=== PATIENT | female | born 1970 | race Caucasian/White ===

== ENCOUNTER 2016-04-01 11:29 | Day surgery (SDC) | payer OTHER ==
[2016-03-31 13:14] VITALS: BMI 31.3
[~2016-04-01 11:29] MED LIST: ACETAMINOPHEN TAB 500 MG TAB PO ONE; DEXAMETHASONE SOD PHOSPHATE 4 MG/ML 1 ML VIAL IV ONE; FAMOTIDINE 20 MG/2 ML VIAL IV ONE; ONDANSETRON 4 MG/2 ML VIAL IVP ONE; Pre Op ABX Message 1 EACH MISC MISCELLANE ONE
[2016-04-01] MEDS ORDERED: LACTATED RINGERS 1,000 ML IV ONE (12:06)
[2016-04-01] MEDS ORDERED: LIDOCAINE 1% 20 ML VIAL (10MG/ML) FOR IV START INTRADERMA ONE (12:36)
[2016-04-01] MEDS ORDERED: SUCCINYLCHOLINE CHLORIDE 100 MG/5 ML SYR IV ONE (13:30)
[2016-04-01] MEDS ORDERED: LIDOCAINE 1% INJ 10MG/ML (20 ML MDV) ONE (13:30)
[2016-04-01] MEDS ORDERED: MIDAZOLAM 2 MG/2 ML VIAL ONE (13:30)
[2016-04-01] MEDS ORDERED: DEXAMETHASONE SOD PHOS (MDV) 100 MG/10 ML VIAL ONE (13:30)
[2016-04-01] MEDS ORDERED: PROPOFOL 10 MG/ML 20 ML VIAL IV ONE (13:30)
[2016-04-01] MEDS ORDERED: fentaNYL (PF) 50 MCG/ML 2 ML AMP ONE (13:30)
[2016-04-01] MEDS ORDERED: SODIUM CHLORIDE 0.9% 50 ML with ceFAZolin 2,000 MG IV ONE ×2 (13:59)
[2016-04-01] MEDS ORDERED: LIDOCAINE 1%-EPI 1:100,000 20 ML VIAL SQ ONE ×2 (14:16)
[2016-04-01] MEDS ORDERED: GELATIN SPONGE,ABSORB (LARGE) 1 EACH SPONGE TOPICAL ONE (14:16)
[2016-04-01] MEDS ORDERED: ONDANSETRON 4 MG/2 ML VIAL IVP PRN (15:41)
[2016-04-01] MEDS ORDERED: NALOXONE 0.4 MG/ML 1 ML VIAL IV PRN (15:41)
[2016-04-01] MEDS ORDERED: PROMETHAZINE 25 MG TAB PO PRN (15:41)
--- NOTE | 2016-04-01 15:41 | P.OP ---
Date of Procedure: 04/01/16 Preoperative Diagnosis: Left thyroid mass Postoperative Diagnosis: Same Procedure(s) Performed: Left thyroid lobectomy with the use of a nerve integrity monitor Anesthesia: SHYAMA Surgeon: Denzel Tena Estimated Blood Loss (ml): 10 Pathology: other (Left thyroid) Condition: stable Disposition: PACU Indications for Procedure: This patient was found have a left thyroid mass. It measured over 3.9 cm and because of its large size surgical removal was recommended as a nodule over 3 cm is difficult to follow based on surveillance. The patient understood all the risks involved including risks of bleeding infection vocal cord paralysis calcium abnormalities scar etc. consent was obtained and all questions were answered Operative Findings: Left thyroid nodule quite large Description of Procedure: SUMMARY: This patient was taken to the operative room and placed in a standard thyroidectomy position with the head elevated and the head in slight extension. The neck was sterilely prepped and draped in the usual fashion. We used a DuraPrep drape. The patient underwent preoperative antibiotic administration. Patient had a functioning IV line in and was monitored throughout the entire case by the department of anesthesia. An incision was was made after it was marked and the previous scar was removed with a 15 blade and delicate plastic scissors and a Brown-Adson forceps. Dissection was carried down through the platysmas muscle to the strap muscles and superior and inferiorly based flaps were developed. We elevated the skin and subcutaneous flaps from the hyoid to the manubrium. We identified the strap muscles in the midline. We divided the strap muscles and utilized self-retaining retractors. We identified the isthmus. An dissection was carried out on the LEFT thyroid lobe. We utilized a nerve integrity monitor during this entire case. Our dissection was carried out inferiorly and the recurrent laryngeal nerve was identified and monitored and watched through the entire case to preserve this structure. We confirmed its identity with use of a probe with the nerve integrity monitor. We also confirmed its integrity at the end of the case prior to closure. Our dissection continued superiorly where the middle thyroid vessels were again applied and ligated with a ligature. The superior vascular pedicle was also ligated with use of the LigaSure. The parathyroid glands were identified and reflected away from the thyroid gland. The parathyroid glands appeared healthy. They had good blood supply. We continued our dissection of the thyroid off of Ybarra's ligament. The nodule was also identified and was adherent to the recurrent laryngeal nerve but was dissected off the nerve carefully and completely. The left thyroid lobe was completely removed and no remnant thyroid tissue was identified. There was no signs of any lymphadenopathy noted. Gelfoam was placed into the surgical site after a copious amount of irrigation. The strap muscles were reapproximated with use of a 40 rapid Vicryl in a running locking fashion. We elected not to place a drain as there was minimal bleeding. We closed the platysmas layer with use of 4-0 Vicryl in a running locking fashion. The subcutaneous skin was closed with 4-0 Monocryl. The final skin closure was with a 6-0 Prolene. Steri-Strips were applied. A modest pressure dressing utilizing Medipore tape was also applied. The patient tolerated this procedure well and was taken to postanesthesia recovery in excellent condition. The recurrent laryngeal nerve was tested prior to closure and was functioning with use of an NIM monitor.
[2016-04-01] MEDS ORDERED: D5-0.45% NACL WITH KCL 20MEQ/L 1,000 ML IV SCH (16:00)
[2016-04-01] MEDS: HYDROmorphone 1 MG/ML 1 ML SYRINGE IVP ONE ×2 (16:00→16:05)
[2016-04-01] MEDS: ceFAZolin 1,000 MG in DEXTROSE/WATER 1 50ML.BAG IVPB SCH (18:27)
[2016-04-01] MEDS: HYDROcodone/APAP 5-325MG 1 EACH TAB PO PRN (23:01)
[2016-04-02] MEDS: ceFAZolin 1,000 MG in DEXTROSE/WATER 1 50ML.BAG IVPB SCH ×2 (00:53→08:31)
[2016-04-02] MEDS: HYDROcodone/APAP 5-325MG 1 EACH TAB PO PRN (08:32)
[2016-04-02 09:17] VITALS: BP 124/78; PULSE 83; RESP 12; TEMP 97.9
== END 2016-04-02 11:48 | disposition home or self-care (01) ==
LOC: OR 11:29 → 6PED 15:28 → OR 04-02 11:48
PROVIDERS: ATTEND Otolaryngology
DX: C73 Malignant neoplasm of thyroid gland (principal); K21.9 Gastro-esophageal reflux disease without esophagitis; Z79.899 Other long term (current) drug therapy
CPT/HCPCS: 60220; 81025; 82310 ×2; 88307; C1762; J2250; J1100 ×2; J2405; J2001; J3010; J1170; J0690 ×2; J0330; J2704

== ENCOUNTER 2023-04-05 09:42 | Day surgery (SDC) | payer BC ==
[~2023-04-05 09:42] MED LIST changes: -ACETAMINOPHEN TAB 500 MG TAB PO ONE; -DEXAMETHASONE SOD PHOSPHATE 4 MG/ML 1 ML VIAL IV ONE; -FAMOTIDINE 20 MG/2 ML VIAL IV ONE; +LIDOCAINE 1% (10MG/ML) FOR IV START INTRADERMA PRN; -ONDANSETRON 4 MG/2 ML VIAL IVP ONE; -Pre Op ABX Message 1 EACH MISC MISCELLANE ONE
[2023-04-05] MEDS: LACTATED RINGERS 1,000 ML IV SCH (10:27)
[2023-04-05 10:36] VITALS: TEMP 97.7
[2023-04-05] MEDS ORDERED: PROPOFOL 10 MG/ML 20 ML VIAL IV ONE (10:54)
--- NOTE | 2023-04-05 11:19 | P.PCN ---
Date of Procedure: 04/05/23 Procedure(s) Performed: BRIEF HISTORY: Patient is a 53-year-old pleasant female scheduled for an elective colonoscopy as a part of screening for colon cancer. PROCEDURE PERFORMED: Colonoscopy With biopsy PREOPERATIVE DIAGNOSIS: Screening for colon cancer. IV sedation per Anesthesia. PROCEDURE: After informed consent was obtained, the patient, was brought into the endoscopy unit. IV sedation was administered by Anesthesia under continuous monitoring. Digital rectal examination was normal. Initially the Olympus CF-160 flexible video colonoscope was then inserted in the rectum, gradually advanced into the cecum without any difficulty. Careful examination was performed as the scope was gradually being withdrawn. Ileocecal valve and the appendiceal orifice were visualized and appeared normal. Prep was excellent. Mucosa of the cecum, ascending colon, appeared normal. There was a 4-5 mm sessile transverse colon polyp that was removed by cold biopsy. Rest of the transverse colon, descending colon, sigmoid colon, and rectum appeared normal. Retroflexion was performed in the rectum and no lesions were seen. The patient tolerated the procedure well. IMPRESSION: 4-5 mm sessile transverse colon polyp status post cold biopsy Rest of the colon appeared normal RECOMMENDATIONS: Findings of this examination were discussed with the patient as well as a family. She was advised to follow with the biopsy results. If the biopsy results adenoma she can have a repeat colonoscopy in 5 years.
[2023-04-05 12:04] VITALS: BP 114/72; PULSE 77; RESP 16
== END 2023-04-05 12:05 | disposition home or self-care (01) ==
LOC: ORWHC2ENDO 09:42
PROVIDERS: ATTEND Internal Medicine Gastroenterology
DX: Z12.11 Encounter for screening for malignant neoplasm of colon (principal); D12.3 Benign neoplasm of transverse colon; K21.9 Gastro-esophageal reflux disease without esophagitis; Z85.850 Personal history of malignant neoplasm of thyroid; Z79.899 Other long term (current) drug therapy
CPT/HCPCS: 88305; 45380; J2704

== ENCOUNTER → 2023-07-15 | Outpatient (CLI) | payer BC ==
--- NOTE | 2023-07-15 09:25 | CT ---
EXAMINATION TYPE: CT angio thor/abd CT DLP: 1035.5 mGycm, Automated exposure control for dose reduction was used. DATE OF EXAM: 07/15/2023 8:34 AM COMPARISON: None. CLINICAL INDICATION:Female, 53 years old with history of Z82.49 FAMILY HX OF ISCHEM HEART DIS AND OTH DIS O; PHH, family hx of aneurysm TECHNIQUE: Dissection protocol: Multiple axial CT images of the chest, abdomen, and pelvis were obtai rory prior and to the administration of IV contrast. 3-D reformats and maximum intensity projection fo rmat were performed on a separate workstation. Contrast used:100 mL of Isovue 370 with IV Contrast, Oral contrast used: FINDINGS: ARTERIAL VASCULATURE: Ascending thoracic aorta and descending thoracic aorta are within normal limits for size. There is no evidence for intramural hematoma within the aorta on noncontrast imaging. Post contrast imaging demonstrates no evidence for dissection.The major vessels of the aortic arch are pat ent. The major vessels of the abdominal aorta are patent. The abdominal aorta and its branches are pa tent. No evidence for dissection or aneurysmal dilation. PULMONARY ARTERIAL VASCULATURE: Normal caliber. No evidence of filling defect to suggest pulmonary em bolus. VENOUS SYSTEM: Unremarkable. Lungs/pleura: No focal consolidation, pneumothorax or pleural effusion. Heart: Within normal limits. Mediastinum: No gross evidence of adenopathy. Lower Neck: No significant findings. Abdomen: Liver: Unremarkable. Gallbladder and Bile ducts: Unremarkable. Pancreas: Unremarkable. Spleen: Unremarkable. Adrenal glands: Unremarkable. Kidneys and Ureters: Unremarkable. No hydronephrosis. Bladder: Unremarkable. Reproductive: Unremarkable. Stomach and Bowel: No evidence of bowel obstruction. Peritoneum: No evidence of pneumoperitoneum, free fluid, or adenopathy. Musculoskeletal: The osseous structures appear intact. Lymph nodes: No evidence of lymphadenopathy. Abdominal wall/soft tissues: Unremarkable. IMPRESSION: No evidence for aortic dissection, aneurysm or occlusion.
== END | disposition home or self-care (01) ==
LOC: RADCTMAIN 07:54
PROVIDERS: ATTEND Family Medicine
DX: Z82.49 Family history of ischemic heart disease and other diseases of the circulatory system (principal)
CPT/HCPCS: 71275; 74175; Q9967

== ENCOUNTER → 2023-07-15 | Outpatient (CLI) | payer BC ==
--- NOTE | 2023-07-16 03:59 | US ---
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 No suspicious tissue within the thyroidectomy bed. RIGHT: # of nodules measured on right: multiple subcentimeter nodules with largest described below 1. 0.8 X 0.5 x 0.7 cm, lower lateral, mixed cystic and solid, hypoechoic nodule, which is wider yasmeen n tall, with smooth margins, without echogenic foci. TR 3. Prior size: no previous ISTHMUS: # of nodules measured in the isthmus: 0 Bilateral neck scanned, no evidence of lymphadenopathy. IMPRESSION: 1. Few subcentimeter right thyroid lobe nodules. No follow-up or FNA is recommended based on ACR TI- RADS. 2. Left thyroid lobe is surgically absent.
== END | disposition home or self-care (01) ==
LOC: RADUSWWP 08:36
PROVIDERS: ATTEND Family Medicine
DX: E04.2 Nontoxic multinodular goiter (principal); Z90.09 Acquired absence of other part of head and neck
CPT/HCPCS: 76536